=== PATIENT | male | born 1960 | race Caucasian/White ===

== ENCOUNTER → 2017-03-11 | Outpatient (CLI) | payer BC ==
[~2017-03-11] MED LIST: DLCSR120 PO; GLCSC750600 PO; LISI-788 PO; MULT-506 PO; PRLSR20 PO
[2017-03-11 10:46] LABS: BLOOD UREA NITROGEN 14 mg/dl (7-18); BUN/CREATININE RATIO 12.4 (10-20); CALCIUM 9.8 mg/dl (8.5-10.1); CARBON DIOXIDE 31 mmol/L (21-32); CHLORIDE 105 mmol/L (98-107); CHOLESTEROL 195 mg/dl (0-200); GLUCOSE 92 mg/dl (70-99); POTASSIUM 4.3 mmol/L (3.5-5.1); SODIUM 139 mmol/L (136-145)
[2017-03-11 10:50] LABS: CHOLESTEROL/HDL RATIO 4.3; HDL CHOLESTEROL 45 mg/dl; LDL CHOLESTEROL CALCULATED 136 mg/dl; TRIGLYCERIDES 70 mg/dl (0-150); VERY LOW DENSITY LIPOPROT CALC 14 mg/dl
== END | disposition home or self-care (01) ==
LOC: C.LAB 09:58
DX: I10 Essential (primary) hypertension (principal); E78.5 Hyperlipidemia, unspecified

== ENCOUNTER → 2017-08-18 | Outpatient (CLI) | payer BC ==
[2017-08-18 13:38] LABS: BLOOD UREA NITROGEN 14 mg/dl (7-18); CALCIUM 9.8 mg/dl (8.5-10.1); CARBON DIOXIDE 30 mmol/L (21-32); CREATININE 1.12 mg/dl (0.60-1.40); GLUCOSE 100 mg/dl (70-99); POTASSIUM 3.9 mmol/L (3.5-5.1); SODIUM 139 mmol/L (136-145)
== END | disposition home or self-care (01) ==
LOC: C.LAB 11:47
DX: I10 Essential (primary) hypertension (principal)

== ENCOUNTER → 2017-11-09 | Outpatient (CLI) | payer OTHER ==
--- NOTE | 2017-11-09 08:30 | DIAGNOSTIC IMAGING REPORT ---
BARIUM ENEMA AIR ROUTINE CLINICAL HISTORY: 56 years-old Male presenting with INCOMPLETE COLONOSCOPY,POLYPS. TECHNIQUE: Initial overhead abdominal radiograph was performed. A standard air contrast enema was performed using water-soluble iodinated contrast administered via gravity drainage into the rectum. Multiple spot fluoroscopic images were obtained in left decubitus and supine positioning to record the evaluation. COMPARISON: Plain radiograph from 2010. FINDINGS: Initial overhead abdominal radiograph demonstrates nonobstructive bowel gas pattern. No gross pneumoperitoneum. Osseous structures normal. Diverticulosis primarily of the descending colon. Normal distention of the rectum and sigmoid colon. Contrast reached the hepatic flexure, which demonstrated large stool burden. Gas noted in the otherwise normal-appearing ascending colon and cecum. No evidence of a polypoid lesion or constricting mass. Fluoroscopy dosage (mGy): Not available. Fluoroscopy time: 4.6 minutes. Number of fluoroscopic spot images: 23. IMPRESSION: 1. Contrast did not reach the ascending colon secondary to large stool burden at the level of the hepatic flexure. Gas filled more proximal colon. 2. Diverticulosis. 3. No evidence of a polypoid lesion or constricting mass. Electronically signed by: Latrell Villarreal M.D. 11/09/2017 8:29 AM Dictated Date/Time: 11/09/2017 8:26 AM
== END | disposition home or self-care (01) ==
LOC: C.RAD 07:17
PROVIDERS: ATTEND Internal Medicine Gastroenterology
DX: Z12.11 Encounter for screening for malignant neoplasm of colon (principal); K57.90 Diverticulosis of intestine, part unspecified, without perforation or abscess without bleeding